=== PATIENT | female | born 1950 | race Caucasian/White ===

== ENCOUNTER → 2020-05-16 | Outpatient (CLI) | payer OTHER ==
--- NOTE | 2020-05-16 15:20 | WOMENS IMAGING REPORT ---
EXAM DESCRIPTION: BILAT SCREENING MAMMO W/CAD IMAGES COMPLETED DATE/TIME: 05/16/2020 1:45 pm REASON FOR STUDY: ROUTINE BILATERAL SCREENING;Z12.31 Z12.31 ENCNTR SCREEN MAMMOGRAM FOR MALIGNANT N EOPLASM OF [place] COMPARISON: None. EXAM PARAMETERS: Standard craniocaudal and mediolateral oblique views of each breast recorded using digital acquisition. Read with the assistance of CAD. .[facility] - [employer] Version 9.2 LIMITATIONS: None. FINDINGS: Findings present which are benign by mammographic criteria. No suspicious masses, calcifi cations or architectural distortion. Pertinent benign findings: Vascular calcifications. Right biopsy clip. Benign mammographic findings may include one or more of the following: Smooth masses, popcorn/rim/co arse calcifications, asymmetries, post-procedure changes, and lesions with long-standing stability. IMPRESSION: BENIGN MAMMOGRAPHIC FINDINGS. BIRADS 2 BREAST DENSITY: b. There are scattered areas of fibroglandular density. BIRAD: ASSESSMENT: 2 BENIGN FINDING(S) RECOMMENDATION: ROUTINE SCREENING COMMENT: The patient has been notified of the results by letter per [facility] requirements. Additional no tification policies are in place for contacting patient with suspicious or incomplete findings. Quality ID #[id number]: The [employer] recommends an annual screening mammogram for women aged 40 years or over. This facility utilizes a reminder system to ensure that all patients receive reminder letters, and/or direct phone calls for appointments. This includes reminders for routine scr eening mammograms, diagnostic mammograms, or other Breast Imaging Interventions when appropriate. Th is patient will be placed in the appropriate reminder system. TECHNICAL DOCUMENTATION: FINDING NUMBER: (1) ASSESSMENT: (1) JOB ID: [id number] 2010 [email or web address]- All Rights Reserved Reading location - IP/workstation name: [email or web address]
== END ==
LOC: WI 13:22
PROVIDERS: ATTEND Family Medicine
DX: Z12.31 Encounter for screening mammogram for malignant neoplasm of breast (principal)
CPT/HCPCS: 77067

== ENCOUNTER 2020-07-08 09:38 | Day surgery (SDC) | payer OTHER ==
[~2020-07-08 09:38] MED LIST: PROPOFOL INJ 200 MG/20 ML VIAL IV ONE
[2020-07-08 11:20] VITALS: BP 95/58
--- NOTE | 2020-07-08 13:41 | Operative Report ---
Operative Report DATE OF SURGERY: 07/08/20 Operative Report: The risks, benefits and alternatives are discussed patient is taken to the OR and propofol sedation provided scope is inserted into the patient's rectum it is advanced to the cecum she does have a redundant colon prep was however good colonoscopy is completed to the cecum scope is withdrawn thru the various segments Retroflexion is performed PREOPERATIVE DIAGNOSIS: colon screening. family history of colon cancer POSTOPERATIVE DIAGNOSIS: redundant colon. right side colon inflammation , biopsy is obtained. internal hemorrhoids mild OPERATION: Colonoscopy with biopsy SURGEON: RUCHI FAUST TISSUE REMOVED OR ALTERED: as noted above COMPLICATIONS: none ESTIMATED BLOOD LOSS: none INTRAOPERATIVE FINDINGS: as noted above PROCEDURE: patient tolerated her procedure well no post procedure complications discharge date: 07/08/2020 discharge diet: regular discharge activity: regular she is instructed to call the office or go to ED if needed follow up on pathology patient will need a 5 year surveillance colonoscopy due to a family history of colon cancer
== END 2020-07-08 12:10 | disposition home or self-care (01) ==
LOC: OROUT 09:38
PROVIDERS: ATTEND Internal Medicine Gastroenterology
DX: K52.9 Noninfective gastroenteritis and colitis, unspecified (principal); Q43.8 Other specified congenital malformations of intestine; K64.8 Other hemorrhoids; Z85.038 Personal history of other malignant neoplasm of large intestine; Z86.010 Personal history of colon polyps; Z80.0 Family history of malignant neoplasm of digestive organs; Z79.899 Other long term (current) drug therapy
CPT/HCPCS: 45380; 88305 ×2; J2704; 812